=== PATIENT | female | born 1980 | race African-American/Black ===

== ENCOUNTER 2017-08-13 08:59 | Emergency (ER) | payer BC, MEDICAID, OTHER ==
[~2017-08-13] VITALS: Ht 154.9 cm; Wt 74.2 kg
[~2017-08-13 08:59] MED LIST: FIORIC PO
[2017-08-13 09:02] VITALS: BP 159/86; PULSE 93; RESP 18; TEMP 98.4; O2SAT 100
--- NOTE | 2017-08-13 09:34 | PD ---
HPI Chief Complaint: ENT Complaint Time Seen by Provider: 09:18 Travel History International Travel<30 days: No Contact w/Intl Traveler<30days: No Traveled to known affect area: No History of Present Illness HPI Patient is a 37-year-old female presents emergency department for evaluation of sore throat fever and some anterior neck pain for the past 3-4 days which is been gradually worsening. Patient states that she's been having intermittent but very minimal amount of cough. No nausea no vomiting. No other close sick contacts. Symptoms are moderate, gradually worsening, associated with some painful swallowing. PFSH Past Medical History Asthma: Yes (CONTROLLED - TAKES NO MEDICATIONS) Cardiovascular Problems: Yes (HX OF CARDIOMEGALLY) Diminished Hearing: No Influenza Vaccination: No ?: Not LMP: 2 WEEKS AGO Ovarian Cysts: Yes Tubal Ligation: Yes Social History Alcohol Use: Yes (SOCIALLY) Tobacco Use: Yes (1 PPD) Substance Use: No Allergies-Medications (Allergen,Severity, Reaction): Coded Allergies: No Known Allergies (Verified , 08/16/17) Reported Meds & Prescriptions Reported Meds & Active Scripts Active No Active Prescriptions or Reported Medications Review of Systems Except as stated in HPI: all other systems reviewed are Neg Physical Exam Narrative GENERAL: Well-nourished, well-developed patient. SKIN: Focused skin assessment warm/dry. HEAD: Normocephalic. EYES: No scleral icterus. No injection or drainage. ENT: Bilateral cerumen impaction but TM is visible just beyond in the visualized portions are normal. Oropharynx is erythematous, bilateral tonsil injection with minimal discharge. Tonsils are 3+. Uvula is midline. NECK: Supple, trachea midline. No JVD or minimal anterior lymphadenopathy tenderness. CARDIOVASCULAR: Regular rate and rhythm without murmurs, gallops, or rubs. RESPIRATORY: Breath sounds equal bilaterally. No accessory muscle use. GASTROINTESTINAL: Abdomen soft, non-tender, nondistended. MUSCULOSKELETAL: No cyanosis, or edema. BACK: Nontender without obvious deformity. No CVA tenderness. Data Data Last Documented VS Vital Signs Date Time Temp Pulse Resp B/P (MAP) Pulse Ox O2 Delivery O2 Flow Rate FiO2 08/13/17 09:52 08/13/17 09:02 98.4 93 18 100 Room Air Orders Orders Penicillin G Benzathine Inj (Bicillin L- (08/13/17 09:45) Ed Discharge Order (08/13/17 09:34) [facility] Medical Decision Making Medical Screen Exam Complete: Yes Emergency Medical Condition: Yes Differential Diagnosis streptococcal pharyngitis, URI, peritonsillar abscess excluded by physical examination. Narrative Course Patient roomed emergency department, signs symptoms consistent with an early streptococcal pharyngitis. Discussed treatment modalities including Bicillin versus Penicillin VK. After discussions of risks benefits, patient alternative both the patient opts for Bicillin injection. Discussed symptomatic management returned ED criteria. She stable for discharge. Diagnosis Primary Impression: Streptococcal pharyngitis Patient Instructions: General Instructions, Strep Throat (DC) Departure Forms: School Release, Return to School Date: Aug 15, 2017 Tests/Procedures, Work Release Enter return to work date: Aug 15, 2017 Scripts No Active Prescriptions or Reported Meds Disposition: 01 DISCHARGE HOME Condition: Stable Hoang Serrano MD Aug 13, 2017 09:34
[2017-08-13] MEDS ORDERED: PENICILLIN G BENZATHINE 1,200,000 UNITS/2 ML SYRINGE IM ONE (09:45)
== END 2017-08-13 10:14 | disposition home or self-care (01) ==
LOC: PHED 08:59
DX: J02.0 Streptococcal pharyngitis (principal); J45.909 Unspecified asthma, uncomplicated; F17.210 Nicotine dependence, cigarettes, uncomplicated
CPT/HCPCS: 96372; 99284; J0561

== ENCOUNTER 2017-08-16 14:09 | Inpatient (IN) | payer BC ==
[~2017-08-16] VITALS: Ht 154.9 cm; Wt 96.4 kg
[2017-08-16 14:24] VITALS: BP 132/80; PULSE 101; RESP 16; TEMP 99.5; O2SAT 95
[2017-08-16] MEDS ORDERED: SODIUM CHLOR 0.9% 1000 ML INJ 1,000 ML IV SCH (15:00)
[2017-08-16] MEDS ORDERED: DEXAMETHASONE SOD PHOS 20 MG/5 ML VIAL IV PUSH ONE (15:00)
[2017-08-16 15:03] LABS: AUTOMATED NEUTROPHIL # 7.6 TH/MM3 (1.8-7.7); BASOPHIL # 0.1 TH/MM3 (0-0.2); BASOPHIL % 0.5 % (0.0-2.0); EOSINOPHIL % 0.2 % (0.0-4.0); HEMATOCRIT 38.3 % (35.0-46.0); HEMO FLAGS DIFF FINAL; LYMPH % 19.7 % (9.0-44.0); LYMPHOCYTE # 2.1 TH/MM3 (1.0-4.8); MEAN CELL VOLUME 84.1 FL (80.0-100.0); MEAN CORPUSCULAR HEMOGLOBIN 27.8 PG (27.0-34.0); MONO % 9.7 % (0.0-8.0); NEUT % 69.9 % (16.0-70.0); PLATELET COUNT 259 TH/MM3 (150-450); RED BLOOD COUNT 4.56 MIL/MM3 (4.00-5.30); RED CELL DISTRIBUTION WIDTH 13.4 % (11.6-17.2); WHITE BLOOD COUNT 10.8 TH/MM3 (4.0-11.0)
--- NOTE | 2017-08-16 15:04 | PD ---
HPI Chief Complaint: Chest Pain Time Seen by Provider: 14:30 Travel History International Travel<30 days: No Contact w/Intl Traveler<30days: No Traveled to known affect area: No History of Present Illness HPI So 37 year-old woman who presents to the emergency department complaining that she's been sick for the past 2 weeks of increase sore throat, subjective fevers , worsening in the difficulty swallowing, and more pain in the throat neck. She was seen here to 3 days ago and was given a shot of Bicillin. She was treated presumptively for strep. No diagnostic testing was done at that time. She's had increasing difficulty swallowing, now with voice changes as well, as well as nausea. She has appointment of myalgias and body aches as well as some chest pain. No definite sick contacts. History Past Medical History Narrative Medical Asthma Tetanus Vaccination: Unknown Influenza Vaccination: No LMP: 07-30-17 Social History Alcohol Use: Yes (SOCIALLY) Tobacco Use: Yes (1 PPD) Allergies-Medications (Allergen,Severity, Reaction): Coded Allergies: No Known Allergies (Verified , 08/16/17) Reported Meds & Prescriptions Reported Meds & Active Scripts Active No Active Prescriptions or Reported Medications Review of Systems Except as stated in HPI: all other systems reviewed are Neg Physical Exam Narrative GENERAL: Well-appearing 37 year-old woman, no acute distress. Muffled voice. SKIN: Focused skin assessment warm/dry. HEAD: Atraumatic. Normocephalic. EYES: Pupils equal and round. No scleral icterus. No injection or drainage. ENT: No nasal bleeding or discharge. Mucous membranes pink and moist. Bilateral tonsillar swelling without obvious purulence, without asymmetry or uvular deviation. NECK: Trachea midline. Some shoddy adenopathy. No rigidity or meningismus. She will move the neck when prompted did not really freely. CARDIOVASCULAR: Regular rate and rhythm. No murmur appreciated. RESPIRATORY: No accessory muscle use. Clear to auscultation. Breath sounds equal bilaterally. GASTROINTESTINAL: Abdomen soft, non-tender, nondistended. Hepatic and splenic margins not palpable. MUSCULOSKELETAL: No obvious deformities. No edema. NEUROLOGICAL: Awake and alert. No obvious cranial nerve deficits. Motor grossly within normal limits. Normal speech. Data Data Last Documented VS Vital Signs Date Time Temp Pulse Resp B/P (MAP) Pulse Ox O2 Delivery O2 Flow Rate FiO2 08/16/17 14:27 101 95 Room Air 08/16/17 14:24 99.5 16 132/80 (97) Orders Orders Ct Soft Tiss Neck W Iv Cont (08/16/17 ) Complete Blood Count With Diff (08/16/17 14:47) Comprehensive Metabolic Panel (08/16/17 14:47) Iv Access Insert/Monitor (08/16/17 14:47) Sodium Chlor 0.9% 1000 Ml Inj (Ns 1000 M (08/16/17 15:00) Dexamethasone Inj (Decadron Inj) (08/16/17 15:00) Electrocardiogram (08/16/17 14:15) Iohexol 350 Inj (Omnipaque 350 Inj) (08/16/17 15:21) Ampicillin-Sulbactam Inj (Unasyn Inj) (08/16/17 16:00) Dexamethasone Inj (Decadron Inj) (08/16/17 22:00) Consult Ent (08/16/17 ) Admit Order (Ed Use Only) (08/16/17 ) Labs Laboratory Tests Test 08/16/17 14:20 White Blood Count 10.8 TH/MM3 Red Blood Count 4.56 MIL/MM3 Hemoglobin 12.7 GM/DL Hematocrit 38.3 % Mean Corpuscular Volume 84.1 FL Mean Corpuscular Hemoglobin 27.8 PG Mean Corpuscular Hemoglobin Concent 33.0 % Red Cell Distribution Width 13.4 % Platelet Count 259 TH/MM3 Mean Platelet Volume 8.9 FL Neutrophils (%) (Auto) 69.9 % Lymphocytes (%) (Auto) 19.7 % Monocytes (%) (Auto) 9.7 % Eosinophils (%) (Auto) 0.2 % Basophils (%) (Auto) 0.5 % Neutrophils # (Auto) 7.6 TH/MM3 Lymphocytes # (Auto) 2.1 TH/MM3 Monocytes # (Auto) 1.0 TH/MM3 Eosinophils # (Auto) 0.0 TH/MM3 Basophils # (Auto) 0.1 TH/MM3 CBC Comment DIFF FINAL Differential Comment Blood Urea Nitrogen 10 MG/DL Creatinine 0.69 MG/DL Random Glucose 83 MG/DL Total Protein 8.2 GM/DL Albumin 3.8 GM/DL Calcium Level 8.7 MG/DL Alkaline Phosphatase 56 U/L Aspartate Amino Transf (AST/SGOT) 8 U/L Alanine Aminotransferase (ALT/SGPT) 15 U/L Total Bilirubin 0.6 MG/DL Sodium Level 137 MEQ/L Potassium Level 3.5 MEQ/L Chloride Level 103 MEQ/L Carbon Dioxide Level 24.1 MEQ/L Anion Gap 10 MEQ/L Estimat Glomerular Filtration Rate 117 ML/MIN [facility] Medical Decision Making Medical Screen Exam Complete: Yes Emergency Medical Condition: Yes Interpretation(s) My review of EKG: Narrow complex irregular rhythm, negative Ps in 1 and aVL could suggest an abnormal source of the rhythm, rate of 92, normal axis, normal intervals, small probably inconsequential Q waves in aVL. LABS: CBC is unremarkable. CMP is unremarkable. CT soft tissue neck: 2.9 cm left tonsillar abscess. Differential Diagnosis Tonsillitis, peritonsillar abscess, retropharyngeal abscess, epiglottitis, other Narrative Course Medical decision making Is a 37-year-old woman presents emergent part worsening muffled voice fever subjective pain difficulty swallowing over the past week or so, persistent despite Bicillin injection 2-3 days ago. She is not drooling but is asking for a couple the spit. No respiratory difficulties. Obvious voice changes. I don' t see any obvious asymmetry on her exam but she states symptoms are worse on the left. We'll check labs, CT imaging, reassess. Diagnosis Primary Impression: Tonsillar abscess Admitting Information Admitting Physician Requests: Admit Scripts No Active Prescriptions or Reported Meds Eduardo Sainz MD Aug 16, 2017 15:04
[2017-08-16 15:09] LABS: CHLORIDE 103 MEQ/L (98-107); POTASSIUM 3.5 MEQ/L (3.5-5.1); SODIUM (NA) 137 MEQ/L (136-145)
[2017-08-16 15:13] LABS: ANION GAP 10 MEQ/L (5-15); BICARBONATE 24.1 MEQ/L (21.0-32.0); BLOOD UREA NITROGEN 10 MG/DL (7-18)
[2017-08-16 15:16] LABS: ALT (GPT) 15 U/L (10-53); AST (GOT) 8 U/L (15-37); GLOMERULAR FILTRATION RATE 117 ML/MIN (>89)
[2017-08-16 15:17] LABS: TOTAL BILIRUBIN ADULT 0.6 MG/DL (0.2-1.0)
[2017-08-16 15:19] LABS: ALKALINE PHOSPHATASE 56 U/L (45-117)
[2017-08-16] MEDS ORDERED: IOHEXOL 350 MG/ML 10 ML VIAL (for RAD DIAG) IVCONTRAST ONE (15:21)
--- NOTE | 2017-08-16 15:40 | RADRPT ---
EXAM DATE/TIME: 08/16/2017 15:12 [place] COMPARISON: No previous studies available for comparison. INDICATIONS : Sore throat and difficulty swallowing. Evaluate for abscess. IV CONTRAST: 85 cc Omnipaque 350 (iohexol) IV RADIATION DOSE: 15.04 CTDIvol (mGy) MEDICAL HISTORY : Cardiomegaly. SURGICAL HISTORY : Tubal ligation. ENCOUNTER: Initial ACUITY: 3 days PAIN SCALE: 6/10 LOCATION: throat TECHNIQUE: Volumetric scanning of the neck was performed. Using automated exposure control and adjustment of th e mA and/or kV according to patient size, radiation dose was kept as low as reasonably achievable to obtain optimal diagnostic quality images. DICOM format image data is available electronically for r eview and comparison. FINDINGS: There is a 2.9 cm left tonsillar abscess. This narrows the way at the level of the oropharynx. No conchita ply infiltrating lesions are identified. There is bilateral grade 2 adenopathy likely reactive in nidia ure. The thyroid gland demonstrates no abnormality. The lung apices demonstrate no abnormality. CONCLUSION: 1. 2.9 cm left tonsillar abscess narrowing the airway. Farhad Guerrero MD on August 16, 2017 at 15:34 Board Certified Radiologist. This report was verified electronically.
[2017-08-16] MEDS ORDERED: AMPICILLIN-SULBACTAM INJ 3 GM in SODIUM CHLORIDE 0.9% INJ 100 ML IV ONE (16:00)
[2017-08-16 16:33] VITALS: BP 131/75; PULSE 87; RESP 18; O2SAT 99
--- NOTE | 2017-08-16 17:08 | HHI.HP ---
[facility] [place] [facility] No Primary Care Physician Admission Diagnosis tonsillar abscess Diagnoses: (1) Tonsillar abscess Diagnosis: Principal Chief Complaint: Sore throat, voice changes Travel History International Travel<30 Days: No Contact w/Intl Traveler <30 Da: No Traveled to Known Affected Are: No History of Present Illness Written by Boaz Reid, acting as scribe for Dr. Blackwell on 08/16/17 at 16:56. 37-year-old female with no chronic medical illnesses who condition started 1 week ago. Patient originally presented to the emergency department in was evaluated for sore throat, fever, anterior neck pain. Patient was diagnosed with streptococcal pharyngitis and was given Bicillin 1.2 million units and was discharged home. Patient states that she did not get any better. She notes that her voice changed 2 days ago. She has not been eating that well or drinking. States that it hurts whenever she opens her mouth, tries to eat or drink. She has tolerated minimal food to include mashed potatoes. She has had nausea but no vomiting. She has felt faint. He denies any chest pain, shortness of breath, dyspnea. Patient was evaluated in emergency department. CT scan was done which does show a 2.9 cm left tonsillar abscess. ER physician did contact ENT on-call who recommended admission and he will evaluate the patient. Review of Systems Ears, nose, mouth, throat: COMPLAINS OF: Throat pain, Hoarseness, Odynophagia Except as stated in HPI: all other systems reviewed are Neg Past Family Social History Past Medical History No chronic medical illnesses Past Surgical History Tubal ligation Reported Medications No home medications Allergies: Coded Allergies: No Known Allergies (Verified , 08/16/17) Family History Reviewed is significant for mother at age 52 from stroke Social History Patient continues smoke since she was 20 years old. Denies any alcohol. States that she used to smoke marijuana in the past. Physical Exam Vital Signs Vital Signs Date Time Temp Pulse Resp B/P (MAP) Pulse Ox O2 Delivery O2 Flow Rate FiO2 08/16/17 16:33 87 18 131/75 (93) 99 Room Air 08/16/17 14:27 101 95 Room Air 08/16/17 14:24 99.5 101 16 132/80 (97) 95 Physical Exam GENERAL: Well-developed, well-nourished, in no acute distress. alert and orientated HEENT: Head is normocephalic without any lesions or masses noted. Facial features are symmetric. Eyes: Unable to evaluate pupil reaction due to patient has decorative contact lenses. Extraocular muscles are intact. Conjunctivae were clear. Oropharyngeal : Unable to examine posterior pharynx completely due to partial trismus. Patient does have significant pain on opening her mouth. There is pain located along the left lateral neck and submandibular area. No lymph nodes were appreciated. Ears: Right canal is occluding with wax unable to visualize tympanic membrane. Left canal is occluding wax unable to visualize tympanic membrane. No pain on palpating the mastoid on left NECK: Supple without any masses. Trachea midline no deviation. No JVD, no bruits are appreciated CARDIAC: Regular rhythm, regular rate. S1/S2 are heard. No murmurs gallops or rubs. LUNGS: Clear to auscultation bilaterally. No wheeze, rhonchi or rales. No use of accessory muscles on inspiration or expiration. ABDOMEN: Soft, nontender. Nondistended. Bowel sounds heard in all 4 quadrants. No organomegaly or masses. Negative rebound, negative guarding EXTREMITIES: No edema, pulses are equal bilaterally. No cyanosis or clubbing NEUROLOGY: Mood and affect appear appropriate. No slurred speech, no facial droop Laboratory Laboratory Tests Test 08/16/17 14:20 White Blood Count 10.8 Red Blood Count 4.56 Hemoglobin 12.7 Hematocrit 38.3 Mean Corpuscular Volume 84.1 Mean Corpuscular Hemoglobin 27.8 Mean Corpuscular Hemoglobin Concent 33.0 Red Cell Distribution Width 13.4 Platelet Count 259 Mean Platelet Volume 8.9 Neutrophils (%) (Auto) 69.9 Lymphocytes (%) (Auto) 19.7 Monocytes (%) (Auto) 9.7 Eosinophils (%) (Auto) 0.2 Basophils (%) (Auto) 0.5 Neutrophils # (Auto) 7.6 Lymphocytes # (Auto) 2.1 Monocytes # (Auto) 1.0 Eosinophils # (Auto) 0.0 Basophils # (Auto) 0.1 CBC Comment DIFF FINAL Differential Comment Blood Urea Nitrogen 10 Creatinine 0.69 Random Glucose 83 Total Protein 8.2 Albumin 3.8 Calcium Level 8.7 Alkaline Phosphatase 56 Aspartate Amino Transf (AST/SGOT) 8 Alanine Aminotransferase (ALT/SGPT) 15 Total Bilirubin 0.6 Sodium Level 137 Potassium Level 3.5 Chloride Level 103 Carbon Dioxide Level 24.1 Anion Gap 10 Estimat Glomerular Filtration Rate 117 Result Diagram: 08/16/17 1420 08/16/17 1420 Caprini VTE Risk Assessment Caprini VTE Risk Assessment: No/Low Risk (score <= 1) Caprini Risk Assessment Model Point Value = 1 Point Value = 2 Point Value = 3 Point Value = 5 Age 41-60 Minor surgery BMI > 25 kg/m2 Swollen legs Varicose veins or History of unexplained or recurrent spontaneous Oral contraceptives or hormone replacement Sepsis (< 1 month) Serious lung disease, including pneumonia (< 1 month) Abnormal pulmonary function Acute myocardial infarction Congestive heart failure (< 1 month) History of inflammatory bowel disease Medical patient at bed rest Age 61-74 Arthroscopic surgery Major open surgery (> 45 min) Laparoscopic surgery (> 45 min) Malignancy Confined to bed (> 72 hours) Immobilizing plaster cast Central venous access Age >= 75 History of VTE Family history of VTE Factor V Leiden Prothrombin [id number] Lupus anticoagulant Anticardiolipin antibodies Elevated serum homocysteine Heparin-induced thrombocytopenia Other congenital or acquired thrombophilia Stroke (< 1 month) Elective arthroplasty Hip, pelvis, or leg fracture Acute spinal cord injury (< 1 month) Prophylaxis Regimen Total Risk Factor Score Risk Level Prophylaxis Regimen 0-1 Low Early ambulation 2 Moderate Order ONE of the following: *Sequential Compression Device (SCD) *Heparin 5000 units SQ BID 3-4 Higher Order ONE of the following medications: *Heparin 5000 units SQ TID *Enoxaparin/Lovenox 40 mg SQ daily (WT < 150 kg, CrCl > 30 mL/min) *Enoxaparin/Lovenox 30 mg SQ daily (WT < 150 kg, CrCl > 10-29 mL/min) *Enoxaparin/Lovenox 30 mg SQ BID (WT < 150 kg, CrCl > 30 mL/min) AND/OR *Sequential Compression Device (SCD) 5 or more Highest Order ONE of the following medications: *Heparin 5000 units SQ TID (Preferred with Epidurals) *Enoxaparin/Lovenox 40 mg SQ daily (WT < 150 kg, CrCl > 30 mL/min) *Enoxaparin/Lovenox 30 mg SQ daily (WT < 150 kg, CrCl > 10-29 mL/min) *Enoxaparin/Lovenox 30 mg SQ BID (WT < 150 kg, CrCl > 30 mL/min) AND *Sequential Compression Device (SCD) Assessment and Plan Assessment and Plan Tonsillar abscess CT scan report of 2.9 cm left tonsillar abscess Airways patent and this time the patient is maintaining her airway, no wheezing or stridor Patient was given dexamethasone 10 mg IV D/w ER physician who has consulted with ENT who recommended continuation of Decadron and ENT will see the patient in consultation Patient was given Unasyn in the emergency department IV fluids Clear liquids DVT prevention Low risk, early ambulation This note was transcribed by jonathan Reid. I, Jose G Blackwell, personally performed the history, physical exam, and medical decision making; and confirmed the accuracy of information in the transcribed note. Authenticated by Jose G Blackwell on 5:43 PM on 08/16/17. I independently reviewed the CT scan which shows an obvious left sided tonsillar mass that partially narrows the airway Physician Certification 2 Midnight Certification Type: Admission for Inpatient Services Order for Inpatient Services The services are ordered in accordance with Medicare regulations or non- Medicare payer requirements, as applicable. In the case of services not specified as inpatient-only, they are appropriately provided as inpatient services in accordance with the 2-midnight benchmark. Estimated LOS (days): 2 2 days is the estimated time the patient will need to remain in the hospital, assuming treatment plan goals are met and no additional complications. Post-Hospital Plan: [place] Boaz Reid Aug 16, 2017 17:08 Jose G Blackwell MD Aug 16, 2017 17:45
[2017-08-16] MEDS ORDERED: SENNOSIDES 8.6 MG TAB PO PRN (17:30)
[2017-08-16] MEDS ORDERED: NALOXONE HCL 0.4 MG/ML AMP IV PUSH PRN (17:30)
[2017-08-16] MEDS ORDERED: MAGNESIUM HYDROXIDE SUSP 30 ML CUP PO PRN (17:30)
[2017-08-16] MEDS ORDERED: LACTULOSE SYRUP 20 GM/30 ML CUP PO PRN (17:30)
[2017-08-16] MEDS ORDERED: TEMAZEPAM 15 MG CAP PO PRN (17:30)
[2017-08-16] MEDS ORDERED: ONDANSETRON HCL 4 MG/2 ML VIAL IVP PRN (17:30)
[2017-08-16 20:18] VITALS: BP 134/75; PULSE 107; RESP 20; TEMP 99; O2SAT 99
[2017-08-16] MEDS: SODIUM CHLORIDE 0.9% FLUSH 10 ML FLUSH IV FLUSH SCH (20:31)
[2017-08-16] MEDS: ACETAMINOPHEN 325 MG TAB PO PRN (20:31)
[2017-08-16] MEDS: DOCUSATE SODIUM 50 MG/SENNA 8.6 MG TAB PO SCH (20:31)
[2017-08-16] MEDS: SODIUM CHLOR 0.9% 1000 ML INJ 1,000 ML IV SCH (20:35)
[2017-08-16] MEDS: AMPICILLIN-SULBACTAM INJ 3 GM in SODIUM CHLORIDE 0.9% INJ 100 ML IV SCH (22:04)
[2017-08-16] MEDS: DEXAMETHASONE SOD PHOS 4 MG/ML VIAL IV PUSH SCH (22:09)
[2017-08-16] MEDS: SODIUM CHLORIDE 0.9% FLUSH 10 ML FLUSH IV FLUSH PRN (22:09)
[2017-08-17 00:18] VITALS: BP 124/78; PULSE 68; RESP 18; TEMP 97.7; O2SAT 97
[2017-08-17] MEDS: SODIUM CHLORIDE 0.9% FLUSH 10 ML FLUSH IV FLUSH PRN ×2 (03:44→06:00)
[2017-08-17] MEDS: AMPICILLIN-SULBACTAM INJ 3 GM in SODIUM CHLORIDE 0.9% INJ 100 ML IV SCH ×2 (03:44→08:53)
[2017-08-17] MEDS: SODIUM CHLOR 0.9% 1000 ML INJ 1,000 ML IV SCH ×2 (03:54→14:11)
[2017-08-17] MEDS: ACETAMINOPHEN 325 MG TAB PO PRN ×3 (03:56→14:11)
--- NOTE | 2017-08-17 05:30 | MB ---
cc: HUNTER BOYKIN MD DATE OF CONSULTATION 08/16/2017 CHIEF COMPLAINT Peritonsillar abscess. HISTORY The patient is a pleasant 37-year-old female with a recent peritonsillar abscess. She was admitted this morning she is seen this afternoon and is doing markedly better over the day with Unasyn antibiotics and steroids. He has no recent history of tonsil infections at all and she has never had a peritonsillar abscess in the past. PHYSICAL EXAMINATION On examination the patient is a pleasant 37-year-old female in no acute distress. She is talking and breathing well eager to eat. Flexible fiberoptic laryngoscopy revealed mild swelling of the left oropharynx. However, the rest of the examination shows the airway below it is widely patent as well. Of note, the patient was able to tolerate the flexible fiberoptic laryngoscopy without any complaints and she had an absent gag reflex. ASSESSMENT Resolving peritonsillar abscess. RECOMMENDATIONS I recommend the patient continue with the IV antibiotics and steroids until at least tomorrow evening's dose. The patient may have clears now and continue clears in the morning. I recommend the patient have a soft diet for lunch and a regular diet for dinner and the patient may likely leave tomorrow at dinnertime if cleared by the home team. The patient may follow up with us in clinic in 1-2 weeks. I recommend the patient go home with 2 weeks of antibiotics and home with an oral Medrol Dosepak of steroids when she is stable for discharge. Hunter Boykin MD CCP/SSB /9:33 PM /5:20 AM
[2017-08-17 05:53] LABS: AUTOMATED NEUTROPHIL # 9.8 TH/MM3 (1.8-7.7); BASOPHIL % 0.2 % (0.0-2.0); EOSINOPHIL % 0.1 % (0.0-4.0); HEMATOCRIT 34.8 % (35.0-46.0); HEMO FLAGS DIFF FINAL; LYMPH % 7.9 % (9.0-44.0); LYMPHOCYTE # 0.8 TH/MM3 (1.0-4.8); MEAN CELL VOLUME 83.3 FL (80.0-100.0); MEAN CORPUSCULAR HEMOGLOBIN 28.1 PG (27.0-34.0); MEAN CORPUSCULAR HGB CONC 33.8 % (32.0-36.0); MONO % 0.8 % (0.0-8.0); PLATELET COUNT 260 TH/MM3 (150-450); RED BLOOD COUNT 4.17 MIL/MM3 (4.00-5.30); RED CELL DISTRIBUTION WIDTH 13.3 % (11.6-17.2); WHITE BLOOD COUNT 10.7 TH/MM3 (4.0-11.0)
[2017-08-17 05:59] LABS: POTASSIUM 3.6 MEQ/L (3.5-5.1)
[2017-08-17] MEDS: DEXAMETHASONE SOD PHOS 4 MG/ML VIAL IV PUSH SCH ×2 (06:00→14:11)
[2017-08-17 06:03] LABS: BICARBONATE 23.9 MEQ/L (21.0-32.0)
[2017-08-17 08:00] VITALS: BP 141/92; PULSE 95; RESP 18; TEMP 97.1; O2SAT 98
[2017-08-17] MEDS: DOCUSATE SODIUM 50 MG/SENNA 8.6 MG TAB PO SCH (08:54)
[2017-08-17] MEDS: SODIUM CHLORIDE 0.9% FLUSH 10 ML FLUSH IV FLUSH SCH (08:54)
[2017-08-17] MEDS ORDERED: INFLUENZA VIRUS VACCINE (QUADRIVALENT) 0.5 ML SYR IM ONE (10:00)
[2017-08-17 12:00] VITALS: BP 139/81; PULSE 91; RESP 18; TEMP 97.5; O2SAT 96
--- NOTE | 2017-08-17 13:36 | HHI.DCPOC ---
Discharge Care Plan Goals to Promote Your Health * To prevent worsening of your condition and complications * To maintain your health at the optimal level Directions to Meet Your Goals Take your medications as prescribed Follow your dietary instruction Follow activity as directed Keep your appointments as scheduled Take your immunizations and boosters as scheduled If your symptoms worsen call your PCP, if no PCP go to Urgent Care Center or Emergency Room Smoking is Dangerous to Your Health. Avoid second hand smoke Call the 24-hour hour crisis hotline for domestic abuse at Jose G Blackwell MD Aug 17, 2017 13:36
[2017-08-17] MEDS ORDERED: AUGM875T3 PO (13:42)
[2017-08-17] MEDS ORDERED: MEDR4PAK PO (14:18)
--- NOTE | 2017-08-17 14:43 | HHI.DS ---
Discharge Summary Admission Date Aug 16, 2017 at 16:14 Discharge Date: Aug 17, 2017 Admitting Diagnosis tonsillar abscess (1) Tonsillar abscess ICD Code: J36 - Peritonsillar abscess Diagnosis: Principal Status: Acute Procedures None Brief History - From Admission Written by Boaz Reid, acting as scribe for Dr. Blackwell on 08/16/17 at 16:56. 37-year-old female with no chronic medical illnesses who condition started 1 week ago. Patient originally presented to the emergency department in was evaluated for sore throat, fever, anterior neck pain. Patient was diagnosed with streptococcal pharyngitis and was given Bicillin 1.2 million units and was discharged home. Patient states that she did not get any better. She notes that her voice changed 2 days ago. She has not been eating that well or drinking. States that it hurts whenever she opens her mouth, tries to eat or drink. She has tolerated minimal food to include mashed potatoes. She has had nausea but no vomiting. She has felt faint. He denies any chest pain, shortness of breath, dyspnea. Patient was evaluated in emergency department. CT scan was done which does show a 2.9 cm left tonsillar abscess. ER physician did contact ENT on-call who recommended admission and he will evaluate the patient. CBC/BMP: 08/17/17 0455 08/17/17 0455 Significant Findings Laboratory Tests Test 08/16/17 14:20 08/17/17 04:55 Monocytes (%) (Auto) 9.7 % (0.0-8.0) Monocytes # (Auto) 1.0 TH/MM3 (0-0.9) Aspartate Amino Transf (AST/SGOT) 8 U/L (15-37) Hematocrit 34.8 % (35.0-46.0) Neutrophils (%) (Auto) 91.0 % (16.0-70.0) Lymphocytes (%) (Auto) 7.9 % (9.0-44.0) Neutrophils # (Auto) 9.8 TH/MM3 (1.8-7.7) Lymphocytes # (Auto) 0.8 TH/MM3 (1.0-4.8) Random Glucose 125 MG/DL (74-106) Imaging Last Impressions Neck CT 08/16/17 0000 Signed Impressions: Service Date/Time: Wednesday, August 16, 2017 15:12 - CONCLUSION: 1. 2.9 cm left tonsillar abscess narrowing the airway. Farhad Guerrero MD PE at Discharge Slightly improved range of motion of jaw opening No muffled voice today, unlabored breathing, no acute distress Hospital Course Patient was admitted. Started on IV steroids and antibiotics and her symptoms improved significantly. ENT was consult dictated and recommended medical management. Patient was able to successfully transition to a soft diet with no setbacks. Patient has met maximum benefit from hospitalization and is clinically stable for discharge. She'll continue with antibiotics and steroids and follow-up with ENT as an outpatient. Pt Condition on Discharge: Stable Discharge Disposition: Discharge Home Discharge Time: <= 30 minutes Discharge Instructions DIET: Follow Instructions for: Soft Diet Additional Diet Instructions: May advance to regular diet if tolerable Activities you can perform: Regular-No Restrictions Follow up Referrals: Ear Nose Throat - 10 Days with Hunter Boykin MD PCP Follow-up New Medications: Amoxicillin-Clavulanate (Augmentin) 875-125 Mg Tab 1 TAB PO BID for Infection, #28 TAB 0 Refills Methylprednisolone Dosepak (Medrol Dosepak) 4 Mg Dspk 4 MG PO DIRECTED, #1 DSPK 0 Refills Per Pharmacist direction Jose G Blackwell MD Aug 17, 2017 14:43
--- NOTE | 2017-08-17 22:58 | EKG ---
Date Performed: 08/16/2017 Time Performed: 14:15:46 PTAGE: 37 years EKG: Sinus rhythm LEFT ATRIAL ENLARGEMENT NONSPECIFIC T-WAVE ABNORMALITY ABNORMAL ECG PREVIOUS TRACING : 05/25/2014 11.04 Compared to prior tracing no significant change DOCTOR: Mahogany [place] Interpretating Date/Time 08/17/2017 22:55:08
== END 2017-08-17 16:02 | disposition home or self-care (01) | DRG 153 ==
LOC: PHED 14:09 → PHEDA 16:14 → PH3B 17:02
PROVIDERS: ADMIT Hospitalist; ATTEND Hospitalist
DX: J36 Peritonsillar abscess (principal); R13.10 Dysphagia, unspecified; J45.909 Unspecified asthma, uncomplicated; Z23 Encounter for immunization
CPT/HCPCS: 70491; 80048; 80053; 85025; 90686; 93005; 96361; 96374; 96375; J0295; J1100; J7030; Q2038; Q9967

== ENCOUNTER 2017-12-27 11:40 | Emergency (ER) | payer BC ==
[~2017-12-27] VITALS: Ht 154.9 cm; Wt 81.6 kg
[~2017-12-27 11:40] MED LIST changes: +AUGM875T3 PO; -FIORIC PO; +MEDR4PAK PO
[2017-12-27 11:49] VITALS: BP 136/67; PULSE 82; RESP 16; TEMP 98.4; O2SAT 98
[2017-12-27] MEDS ORDERED: AUGM875T3 PO (12:15)
--- NOTE | 2017-12-27 12:15 | PD ---
HPI Chief Complaint: ENT Complaint Time Seen by Provider: 12:06 Travel History International Travel<30 days: No Contact w/Intl Traveler<30days: No Traveled to known affect area: No History of Present Illness HPI This is a 37-year-old female here with sore throat 4 days. She denies fever or chills. No difficulty swallowing. She reports she had a peritonsillar abscess that spontaneously drained approximately 3 months ago. She reports the symptoms are similar. Symptom severity is moderate. No aggravating or alleviating factors. PFSH Past Medical History Asthma: Yes (CONTROLLED - TAKES NO MEDICATIONS) Cardiovascular Problems: Yes (HX OF CARDIOMEGALLY) Diminished Hearing: No Musculoskeletal: No Neurologic: No Psychiatric: No Respiratory: Yes Immunizations Current: No ?: Not Ovarian Cysts: Yes Tubal Ligation: Yes Social History Alcohol Use: Yes (SOCIALLY) Tobacco Use: Yes (1 PPD) Substance Use: No Allergies-Medications (Allergen,Severity, Reaction): Coded Allergies: No Known Allergies (Verified Adverse Reaction, Unknown, 12/27/17) Reported Meds & Prescriptions Reported Meds & Active Scripts Active Augmentin (Amoxicillin-Clavulanate) 875-125 Mg Tab 1 Tab PO BID Review of Systems Except as stated in HPI: all other systems reviewed are Neg General / Constitutional: No: Fever Eyes: No: Visual changes HENT: Positive: Sore Throat Cardiovascular: No: Chest Pain or Discomfort Respiratory: No: Shortness of Breath Gastrointestinal: No: Abdominal Pain Genitourinary: No: Dysuria Physical Exam Narrative GENERAL: Alert and well-appearing 37-year-old female. SKIN: Warm and dry. HEAD: Normocephalic. EYES: No injection or drainage. Ear/nose/throat: Pharyngeal erythema with moderate tonsillar hypertrophy and scant exudate. No asymmetry of the tonsils. Uvula is midline. Airway is patent. Normal phonation. Patient drinking and swallowing secretions without difficulty. Normal phonation. NECK: Supple, trachea midline. No lymphadenopathy. CARDIOVASCULAR: Regular rate and rhythm RESPIRATORY: Breath sounds equal bilaterally. No accessory muscle use. Data Data Last Documented VS Vital Signs Date Time Temp Pulse Resp B/P (MAP) Pulse Ox O2 Delivery O2 Flow Rate FiO2 12/27/17 11:49 98.4 82 16 136/67 (90) 98 MDM Medical Decision Making Medical Screen Exam Complete: Yes Emergency Medical Condition: Yes Differential Diagnosis Tonsillitis, pharyngitis, peritonsillar abscess Narrative Course 37-year-old female here with exudative tonsillitis. Her airway is patent. She is nontoxic appearing. She'll be treated with Augmentin. Return precautions were discussed. Patient verbalizes understanding and agrees to plan Diagnosis Primary Impression: Tonsillitis Referrals: Primary Care Physician Additional Instructions: Antibiotics as directed. Tylenol and ibuprofen as needed for pain. Stay well hydrated. Return if he developed new or worsening symptoms. Scripts Amoxicillin-Clavulanate (Augmentin) 875-125 Mg Tab 1 TAB PO BID for Infection, #20 TAB 0 Refills Prov: Ladan Krishnamurthy 12/27/17 Disposition: DISCHARGE HOME Condition: Stable Ladan Krishnamurthy Dec 27, 2017 12:15
== END 2017-12-27 12:26 | disposition home or self-care (01) ==
LOC: PHEFT 11:40
DX: J03.90 Acute tonsillitis, unspecified (principal); J45.909 Unspecified asthma, uncomplicated; I51.7 Cardiomegaly; F17.200 Nicotine dependence, unspecified, uncomplicated
CPT/HCPCS: 99283

== ENCOUNTER 2018-04-17 02:21 | Emergency (ER) | payer BC ==
[~2018-04-17] VITALS: Ht 154.9 cm; Wt 85.4 kg
[~2018-04-17 02:21] MED LIST changes: -MEDR4PAK PO
[2018-04-17 02:32] VITALS: BP 167/98; PULSE 90; RESP 18; TEMP 98; O2SAT 99
[2018-04-17] MEDS ORDERED: FLUORESCEIN SOD 1 MG STRIP EACH EYE ONE (02:45)
[2018-04-17] MEDS ORDERED: PROPARACAINE HCL 0.5% OPHT SOLN 15 ML BTL EACH EYE ONE (02:45)
--- NOTE | 2018-04-17 02:54 | PD ---
HPI Chief Complaint: Foreign Body Time Seen by Provider: 02:41 Travel History International Travel<30 days: No Contact w/Intl Traveler<30days: No Traveled to known affect area: No History of Present Illness HPI Patient is a 37 year old female who comes in complaining of pain to her left eye. She says that she took her contact lenses out tonight and noticed one was ripped. She says she got the ripped piece out, but now she still has a lot of irritation to the eye and feels like something is still in it. She says her vision is blurred, but she normally cannot see without her glasses. She denies any other complaints. This happened a few hours ago. Severity is mild to moderate. PFSH Past Medical History Asthma: Yes (CONTROLLED - TAKES NO MEDICATIONS) Cardiovascular Problems: Yes (HX OF CARDIOMEGALLY) Diminished Hearing: No Musculoskeletal: No Neurologic: No Psychiatric: No Respiratory: Yes Immunizations Current: No ?: Unknown LMP: 04/15/18 Ovarian Cysts: Yes Tubal Ligation: Yes Social History Alcohol Use: Yes (SOCIALLY) Tobacco Use: Yes (1 PPD) Substance Use: No Allergies-Medications (Allergen,Severity, Reaction): Coded Allergies: No Known Allergies (Verified Adverse Reaction, Unknown, 04/17/18) Reported Meds & Prescriptions Reported Meds & Active Scripts Active Augmentin (Amoxicillin-Clavulanate) 875-125 Mg Tab 1 Tab PO BID Review of Systems General / Constitutional: No: Fever, Chills Eyes: Positive: Blurred Vision, Foreign Body Sensation, Pain HENT: No: Headaches, Lightheadedness Cardiovascular: No: Chest Pain or Discomfort Respiratory: No: Shortness of Breath Gastrointestinal: No: Nausea, Vomiting Skin: No Rash, No Change in Pigmentation Neurologic: No: Weakness, Dizziness Physical Exam Narrative GENERAL: Awake and alert, in no acute distress. SKIN: Focused skin assessment warm/dry. HEAD: Atraumatic. Normocephalic. EYES: Pupils equal and round and reactive. No scleral icterus. Corneal injection. EOMI. ENT: Mucous membranes pink and moist. CARDIOVASCULAR: Regular rate and rhythm. No murmur appreciated. RESPIRATORY: No accessory muscle use. Clear to auscultation. Breath sounds equal bilaterally. MUSCULOSKELETAL: No obvious deformities. No clubbing. No cyanosis. No edema. NEUROLOGICAL: Awake and alert. No obvious cranial nerve deficits. Motor grossly within normal limits. Normal speech. Data Data Last Documented VS Vital Signs Date Time Temp Pulse Resp B/P (MAP) Pulse Ox O2 Delivery O2 Flow Rate FiO2 04/17/18 02:43 18 04/17/18 02:32 98.0 90 167/98 (121) 99 Orders Orders Proparacaine 0.5% Opth Soln (Alcaine 0.5 (04/17/18 02:45) Fluorescein Strip ([id number] A.T.) (04/17/18 02:45) MDM Medical Decision Making Medical Screen Exam Complete: Yes Emergency Medical Condition: Yes Medical Record Reviewed: Yes Differential Diagnosis corneal abrasion vs conjunctivitis vs corneal ulcer Narrative Course Patient is a 37-year-old female comes in complaining of left eye pain after her contact lens ripped in her eye. [place] lamp exam performed shows a corneal abrasion in the 6 o'clock position. No foreign body seen. Patient will be discharged with prescription for ciprofloxacin eyedrops. Advised to avoid contact use until her abrasion heals and she is finished her antibiotics. Advised follow-up with ophthalmology. Advised return to the ED as needed for any worsening symptoms. Diagnosis Primary Impression: Corneal abrasion due to contact lens Qualified Codes: H18.822 - Corneal disorder due to contact lens, left eye Referrals: Lissy Witt MD call for appointment Patient Instructions: Corneal Abrasion (ED), General Instructions Additional Instructions: Do not wear contact lenses until your eyes completely healed and you have finished the course of antibiotics. Follow-up with ophthalmology. Return to the ED as needed for any worsening symptoms. Scripts Ciprofloxacin Opth Drops (Ciprofloxacin Opth Drops) 0.3% Soln 2 DROP LEFT EYE Q4H for Infection for 10 Days, #1 BOTTLE 0 Refills while awake x 5 days. Prov: Norma Wallace MD 04/17/18 Disposition: 01 DISCHARGE HOME Condition: Stable Norma Wallace MD Apr 17, 2018 02:54
[2018-04-17] MEDS ORDERED: CIPR0.3S2 LEFT EYE (02:58)
[2018-04-17 03:04] VITALS: BP 155/99
== END 2018-04-17 03:34 | disposition home or self-care (01) ==
LOC: PHED 02:21
DX: H18.822 Corneal disorder due to contact lens, left eye (principal); J45.909 Unspecified asthma, uncomplicated; I51.7 Cardiomegaly; F17.200 Nicotine dependence, unspecified, uncomplicated
CPT/HCPCS: 99283